=== PATIENT | female | born 1955 | race African-American/Black ===

== ENCOUNTER 2021-11-27 14:58 | Emergency (ER) | payer MEDICARE, OTHER, MEDICAID, SELFPAY ==
--- NOTE | ~2021-11-27 | XR_ITS ---
XR chest 2V 11/27/2021 15:37 Indication: Left-sided chest pain Procedure: PA and lateral views of the chest Comparison: No prior studies for comparison. Findings: Heart size normal. No focal air space disease, pulmonary edema, pleural effusion or suspect ed pneumothorax. The lungs are hyperinflated which is consistent with, but not diagnostic of chronic obstructive pulmo nary disease. Impression: 1: No acute cardiopulmonary disease. Reviewed, dictated and finalized at location A. Impression: 1: No acute cardiopulmonary disease.
--- NOTE | 2021-11-27 15:05 | ECG_ITS ---
Rate 87 MI 159 QRSd 122 QT 379 QTc 456 --[place]-- P 75 QRS -8 T 61 SINUS RHYTHM MODERATE INTRAVENTRICULAR CONDUCTION DELAY [110+ ms QRS DURATION] MINIMAL VOLTAGE CRITERIA FOR LVH, CONSIDER NORMAL VARIANT [MEETS CRITERIA IN ONE OF: R(aVL), S(V1), R(V5), R(V5/V6)+S(V1)] BORDERLINE ECG NO PREVIOUS ECG AVAILABLE FOR COMPARISON Electronically Signed On 11-30-2021 11:28:29 CDT by Killian SOSA
[2021-11-27 15:16] VITALS: BP 169/76; PULSE 85; RESP 16; TEMP 36.7; O2SAT 97
[2021-11-27 15:18] VITALS: PULSE 83
[2021-11-27] MEDS: Please add drug allergy info to patient profile. XX (15:19)
[2021-11-27 15:23] LABS: Basophils Absolute Auto 0.1 K/mm3 (0.0-0.1); Basophils Percent Auto 0.9 % (0.2-1.2); Eosinophils Absolute Auto 0.1 K/mm3 (0-0.3); Eosinophils Percent Auto 1.4 % (0-4.4); Hematocrit 45.5 % (37.0-47.0); Immature Granulocyte Absolute 0.03 K/mm3 (0.00-0.031); Immature Granulocyte Percent A 0.3 % (0-0.5); Lymphocytes Absolute Auto 2.47 K/mm3 (0.9-3.2); Lymphocytes Percent Auto 28.5 % (18.3-44.2); Monocytes Absolute Auto 0.8 K/mm3 (0.1-0.6); Monocytes Percent Auto 8.9 % (2.6-8.5); Neutrophils Absolute Auto 5.2 K/mm3 (1.3-6.7); Platelet Count Result 243 k/mm3 (150-375); Red Blood Count 5.35 M/mm3 (4.2-5.4); Red Cell Distribution Width 13.2 % (11.5-14.5); White Blood Count 8.7 K/mm3 (4.5-10.0)
[2021-11-27 15:32] LABS: Alanine Aminotransferase 25 U/L (6-35); Albumin Level 4.5 g/dL (3.5-5.1); Alkaline Phosphatase 68 U/L (38-126); Anion Gap 11 mmol/L (8-16); Aspartate Amino Transferase 27 U/L (14-36); Bilirubin,Total 0.5 mg/dL (0.2-1.3); Blood Urea Nitrogen 14 mg/dL (7-17); Calcium 9.4 mg/dL (8.4-10.2); Carbon Dioxide 26 mmol/L (22-30); Chloride 105 mmol/L (98-107); Estimated CRCL calculation 65 ml/min; Estimated Glomerular Filt Rate > 60; Glucose 112 mg/dL (65-110); Lipase 113 U/L (23-300); Potassium 3.4 mmol/L (3.4-5.0); Sodium 142 mmol/L (137-145)
[2021-11-27 15:33] LABS: INR 1.1; Prothrombin Time 13.8 Seconds (11.1-14.7)
--- NOTE | 2021-11-27 15:33 | ED.CHESTPAIN ---
HPI - Chest Pain General Chief Complaint: Chest Pain Stated Complaint: chest pain Time Seen by Provider: 11/27/21 15:10 History of Present Illness HPI narrative: 66-year-old female with history of anxiety and depression presents here with 1 day of intermittent chest tightness, she states that she has been a lot of stress lately, she feels that her brother's killed him and she just buried him yesterday, she states she feels well when she is around other people, but when she is stressed out and thinking about what happened, she gets a sensation of chest tightness, and difficulty breathing. Denies any other symptoms, no radiation of the pain, no history of heart problems. No thoughts of hurting herself or others. Has not taken any medications. Related Data Allergies Allergy/AdvReac Type Severity Reaction Status Date / Time No Known Allergies Allergy Verified 11/27/21 15:19 Review of Systems Review of Systems: CONST: No fever. HEENT: No sore throat C/V: Chest pain RESP: Shortness of breath GI: No vomiting : No dysuria. M/S: No joint pain. SKIN: No rash. NEURO: No focal numbness or weakness PSYCH: Depressed [facility] Past Medical History Medical History (Updated 11/27/21 @ 15:53 by Hallie Drew MD) Anxiety Social History Social History (Updated 11/27/21 @ 15:59 by Hallie Drew MD) Smoking status: Current some day smoker Alcohol intake: current Exam Narrative: EXAMINATION OF ORGAN SYSTEMS/BODY AREAS: Constitutional: Vital signs per nursing GENERAL: Resting comfortably, crying when she starts recalling what happened to her brother HEAD: Normal with no signs of head trauma. EYES: Injected conjunctiva, crying ENT: Hearing grossly intact LUNGS: Nonlabored breathing. HEART: [Regular rate and rhythm] ABD: [Soft], [nontender to palpation] EXT: Normal range of motion SKIN: [No rashes or lesions.] NEURO: [Alert and oriented x 3. No gross focal sensory or strength deficits.] PSYCH: tearful affect Course Vital Signs Vital signs: Vital Signs Temperature 98.1 F 11/27/21 15:16 Pulse Rate 85 11/27/21 15:16 Respiratory Rate 16 11/27/21 15:16 Blood Pressure 169/76 H 11/27/21 15:16 Pulse Oximetry 97 11/27/21 15:16 Oxygen Delivery Room Air 11/27/21 15:16 Temperature 98.1 F 11/27/21 15:16 Pulse Rate 83 11/27/21 15:18 Respiratory Rate 16 11/27/21 15:16 Blood Pressure 169/76 H 11/27/21 15:16 Pulse Oximetry 97 11/27/21 15:16 Oxygen Delivery Room Air 11/27/21 15:16 MDM - Chest Pain MDM Narrative Medical decision making narrative: 66-year-old female presenting with chest pressure with some shortness of breath in setting of stress, vital signs stable, exam shows normal cardiopulmonary exam but tearful patient, I suspect likely grief/stress response with anxiety attack, much less likely Takotsubo's, ACS, pneumothorax or pneumonia, EKG Lab Data Result diagrams: 11/27/21 15:15 11/27/21 15:15 Labs: Lab Results 11/27/21 11/27/21 11/27/21 Range/Units 15:15 15:15 15:15 WBC 8.7 (4.5-10.0) K/mm3 RBC 5.35 (4.2-5.4) M/mm3 Hgb 15.0 (12.0-15.0) g/dL Hct 45.5 (37.0-47.0) % MCV 85.0 (80-100) fl MCH 28.0 (26-34) pg MCHC 33.0 (32-36) g/dl RDW 13.2 (11.5-14.5) % Plt Count 243 (150-375) k/mm3 MPV 11.0 H (7.4-10.4) fl Immature Gran % (Auto) 0.3 (0-0.5) % Neut % (Auto) 60.0 (45.5-73.1) % Lymph % (Auto) 28.5 (18.3-44.2) % Donley % (Auto) 8.9 H (2.6-8.5) % Eos % (Auto) 1.4 (0-4.4) % Baso % (Auto) 0.9 (0.2-1.2) % Lymph # (Auto) 2.47 (0.9-3.2) K/mm3 Donley # (Auto) 0.8 H (0.1-0.6) K/mm3 Eos # (Auto) 0.1 (0-0.3) K/mm3 Baso # (Auto) 0.1 (0.0-0.1) K/mm3 Abs Immat Gran (auto) 0.03 (0.00-0.031) K/mm3 Absolute Neuts (auto) 5.2 (1.3-6.7) K/mm3 Absolute Nucleated RBC 0.0 (0.0-0.012) K/mm3 Nucleated RBC % 0.0 (0.0-0.2) % PT 13.8 (11.1-
[2021-11-27 15:43] LABS: Troponin I < 0.012 ng/mL (0.000-0.034)
[2021-11-27] MEDS: LORazepam INJ (*CRX) 2 MG/ML VIAL 0.5 MG IV PUSH (16:45)
== END 2021-11-27 16:49 | disposition home or self-care (01) ==
PROVIDERS: Emergency Medicine; Emergency Provider Emergency Medicine
DX: F43.9 Reaction to severe stress, unspecified (principal); F43.20 Adjustment disorder, unspecified; R07.89 Other chest pain
CPT/HCPCS: 36415; 71046; 80053; 83690; 84484; 85025; 85610; 85730; 93005; 96374; 99284; J2060